=== PATIENT | female | born 1980 | race Caucasian/White ===

== ENCOUNTER 2024-06-13 19:49 | Emergency (ER) | payer OTHER, SELFPAY ==
[2024-06-13 19:51] VITALS: BP 137/104
--- NOTE | 2024-06-13 22:26 | ED.GENMED ---
History of Present Illness
General
Chief Complaint: DVT/Possible Blood Clot
Source: patient
Exam Limitations: none
Time Seen by Provider: 06/13/24 22:11
Nursing documentation reviewed up to this point in time: agreed with
History of Present Illness
History of Present Illness:
This is a pleasant 43-year-old female that presents with right anterior garcia pain that has been present for the last few days. She denies any injury. She states that initially she noticed some swelling but does not see any swelling at this point.
Patient was seen at urgent care today and was sent into the emergency department for an ultrasound. Patient denies chest pain or shortness of breath. She does have chronic right hip pain and sees Dr. Frank Zuniga for injections. Denies fever or
chills. Has been ambulating normally. Has been able to get to work without issue. She states that she and her family went apple picking on Monday but states that it was on flat ground denies any strenuous activity.
Phy Exam
General Physical Exam
General Presentation: well appearing and no apparent distress
General age: appears stated age
General Skin: warm
General Habitus: normal
General Mental: alert
General Hydration: appears well hydrated
Pulmonary Exam
Pulmonary Exam: no respiratory distress and no cough
Neurological Exam
Neurological Exam: alert and oriented x3
Musculoskeletal Exam
Musculoskeletal Exam: full ROM
Skin Exam
Skin Exam: normal color and warm/dry
Psychiatric Exam
Psychiatric Exam: normal mood/affect and anxious
Course
Orders/Labs/Results
Orders:
Orders
06/13/24 19:54
US Legs, Right [US Periph Venous LOWER Ext RT] Urgent
Comment:
Reason For Exam: pain and swelling
06/13/24 22:27
Leg Tibia/Fibula, Right 2 View [CR Leg Tibia/fibula Right 2 Vw] Urgent
Comment:
Reason For Exam: pain
Vital Signs
Initial and Last Documented VS:
Initial Vital Signs
Temp Pulse Resp BP Pulse Ox
99.0 F 89 18 137/104 99
06/13/24 19:51 06/13/24 19:51 06/13/24 19:51 06/13/24 19:51 06/13/24 19:51
Last Documented Vital Signs
Temp Pulse Resp BP Pulse Ox
99.0 F 89 18 137/104 99
06/13/24 19:51 06/13/24 19:51 06/13/24 19:51 06/13/24 19:51 06/13/24 19:51
*Radiology
Radiology exam reviewed: radiology read reviewed
*Pulse Oximetry
Patient hypoxic: no
*EKG
Interpreted by ED Provider?: NA
*Critical Care Note
Total Time (30-74mins, 75-104mins- exclusive of procedures): Not Applicable
Patient Management
Social determinants of health affecting care: Strong social support
ED Attending Note
-
Portions of this chart may have been created with voice recognition software.� Occasional wrong word or��sound alike� substitutions may have occurred due to the inherent limitations of voice recognition software.
Discharge Plan
Departure
Patient Disposition: Home (Routine Discharge)
Date of Disposition: 06/13/24
Time of Disposition: 22:52
Patient with high blood pressure during this ER visit?: Yes
Condition: Good
Discharge Problem:
Anterior leg pain
Instructions: [facility] Splints (DC)
Referrals:
[facility] [Provider Group] - Call in 1-3 days for appt
Goldie Salter CRNP [Family Provider] -
Activity Restrictions/Additional Instructions:
It was a pleasure meeting you and taking part in your care. We hope for your continued healing and wellness.
Please read discharge instructions in their entirety. However, they are for general education and may not describe your exact diagnosis at discharge. Information on your ER visit and medical conditions were discussed with you along with appropriate
follow up information...
If indicated, please take your medications as instructed and indicated on discharge paperwork.
Please schedule a follow up appointment as directed. Call to schedule an appointment
Please return to the emergency department with ANY change in, persisting, or worsening of symptoms. If any of your symptoms do not improve, or persist, or become more severe within 6-12 hours, please return to the emergency department for further
care.
Please return to the emergency department if you develop a headache, neck pain/stiffness, fever greater than 100.4F, chest pain, shortness of breath, persistent nausea, vomiting, slurred speech, difficulty walking, numbness/tingling, weakness, signs
of infection or any other symptoms that are worrisome to you.
If you have any questions or concerns please do not hesitate to call the Hospital at or E-mail me directly at [email or web address]
Interventions
Interventions:
*Risk Screen - Suicide Last Done: 06/13/24 19:50
*General Assessment Last Done: 06/13/24 19:51
*Neglect/Abuse Screening Last Done: 06/13/24 19:51
*ED COVID-19 Vaccine History Last Done: 06/13/24 19:51
ED- Cardiac Assessment Last Done: 06/13/24 22:20
ED- Pulmonary Assessment Last Done: 06/13/24 22:20
ED-Skin Assessment Last Done: 06/13/24 22:16
Discharge Date and Time
Print Language: YI
== END 2024-06-13 23:20 | disposition home or self-care (01) ==
LOC: EMR 19:49
PROVIDERS: EMERGENCY PHYSICIAN Student in an Organized Health Care Education/Training Program; FAMILY PHYSICIAN Nurse Practitioner Family
DX: M79.604 Pain in right leg (principal); R03.0 Elevated blood-pressure reading, without diagnosis of hypertension
CPT/HCPCS: 99284; 73590; 93971